=== PATIENT | male | born 1960 | race Caucasian/White ===

== ENCOUNTER 2017-01-08 17:32 | Emergency (ER) | payer BC ==
[~2017-01-08] VITALS: Ht 180.3 cm; Wt 95.3 kg
--- NOTE | 2017-01-08 17:32 | NUR ---
Patient to ER bed 1 to gown for evaluation. Side rails up. Report given to ELO MORIN.
--- NOTE | 2017-01-08 17:35 | NUR ---
ER at bedside examining patient.
--- NOTE | 2017-01-08 17:35 | NUR ---
Pt brought in by ALS transport in stable condition. Per medics, pt was found on the sidewalk. Pt has hx of DM2 and blood glucose was 34 on scene. Pt was given 60 ml of D10 in route. Per medics, recheck blood sugar was 80. Pt stated that he does not recall the event prior to arrival to ED. Pt is AOx4 at this time. -sob -chest pain. No acute distress noted at this time, will continue to monitor.
[2017-01-08 17:37] VITALS: BP 137/81; PULSE 89; RESP 18; TEMP 97.3; O2SAT 95
--- NOTE | 2017-01-08 17:40 | NUR ---
Ordered a dinner tray for patient.
[2017-01-08 18:14] LABS: BASOPHILS # (AUTO) 0.1 K/uL (0.0-0.2); BASOPHILS % (AUTO) 0.7 % (0.0-2.0); EOSINOPHILS # (AUTO) 0.1 K/uL (0.0-0.4); EOSINOPHILS % (AUTO) 0.8 % (0.0-4.0); HEMATOCRIT 44.6 % (36-54); HEMOGLOBIN 14.3 g/dL (14.0-18.0); LYMPHOCYTES # (AUTO) 1.2 K/uL (1.0-5.5); LYMPHOCYTES % (AUTO) 10.6 % (20.5-51.5); MEAN CORPUSCULAR HEMOGLOBIN 29 pg (27-31); MEAN CORPUSCULAR HGB CONC 32 % (32-36); MEAN CORPUSCULAR VOLUME 91 fL (79.0-98.0); MONOCYTES # (AUTO) 0.8 K/uL (0.0-1.0); MONOCYTES % (AUTO) 7.3 % (1.7-9.3); NEUTROPHILS # (AUTO) 8.7 K/uL (1.8-7.7); NEUTROPHILS % (AUTO) 80.6 % (40.0-70.0); PLATELET COUNT (AUTO) 298 K/uL (130-430); RED BLOOD CELL COUNT(AUTO) 4.89 MIL/uL (4.2-6.2); RED CELL DISTRIBUTION WIDTH 12.4 % (9.0-15.0); WHITE BLOOD COUNT (AUTO) 10.9 K/uL (4.8-10.8)
[2017-01-08 18:28] LABS: CALCIUM 9.4 mg/dL (8.4-11.0); CREATININE 0.84 mg/dL (0.55-1.30); POTASSIUM 3.7 mmol/L (3.5-5.1)
[2017-01-08 18:33] LABS: ALBUMIN 4.3 g/dL (3.4-4.8); TOTAL BILIRUBIN 0.6 mg/dL (0.0-1.0); TOTAL PROTEIN, SERUM 7.2 g/dL (6.4-8.3)
[2017-01-08 19:07] VITALS: BP 144/78; PULSE 90; RESP 18; TEMP 97.3; O2SAT 97
--- NOTE | 2017-01-08 19:07 | NUR ---
Patient given written and verbal discharge instructions and verbalizes understanding. ER MD Troncoso discussed with patient the results and treatment provided. Patient in stable condition. ID arm band removed. IV catheter removed intact and dressing applied, no active bleeding. NO RX given. Patient educated on pain management and to follow up with PMD. Pain Scale 0/10. Opportunity for questions provided and answered.
[2017-01-08 19:53] LABS: INR 0.9 (0.80-1.20); PROTHROMBIN TIME 10.1 SECS (9.5-12.5)
== END 2017-01-08 19:07 | disposition home or self-care (01) ==
LOC: SED 17:32
DX: E11.649 Type 2 diabetes mellitus with hypoglycemia without coma (principal)
CPT/HCPCS: 36415; 71010; 80053; 83880; 84484; 85025; 85610-TC; 93005; 99285